=== PATIENT | male | born 1960 | race Caucasian/White ===

== ENCOUNTER 2020-12-02 16:38 | Emergency (ER) | payer OTHER, SELFPAY ==
--- OUTSIDE RECORDS SUMMARY | 2020-12-02 16:43 | XMS REPORT | Continuity of Care Document ---
:1960 Author Organization [facility] Address [address] [place] [address] Care Team Providers Name Role Phone DR MALLORY Attending Clinician Unavailable DR MALLORY Admitting Clinician Unavailable Problems This patient has no known problems. Allergies, Adverse Reactions, Alerts This patient has no known allergies or adverse reactions. Medications This patient has no known medications. Procedures This patient has no known procedures. Encounters Start End Encounter Admission Attending Care Care Encounter Source Date/Time Date/Time Type Type Clinicians Facility Department ID 2020-08-03 2020-08-05 Outpatient E ELVIRA TEJADA TELE [id number] [facility] 12:53:00 17:09:00 [facility] Center 2019-08-22 2019-08-22 Emergency E [facility] [id number] [facility] 01:56:00 01:56:00 Results Test Description Test Time Test Comments Results Result Comments Source BLOOD CULTURE 2020-08-08 13:44:00 Test Item Value Reference Range Interpretation Comme nts Culture Observations (test code = COB1) NO GROWTH AFTER 5 DAYS BLOOD [id number] 13:44:00 Test Item Value Reference Range Interpretation Comments Culture Observations (test NO GROWTH AFTER 5 code = COB1) DAYS GLUCOMETER GLUCOSE- LAB USE [id number] 16:19:00 Test Item Value Reference Range Interpretation Comments GLUCOMETER (test code 228 mg/dL 70-100 H CLEANE D METERMeter ID: = GMG) [id number] tor: [address] GLUCOMETER GLUCOSE- LAB USE [id number] 11:39:00 Test Item Value Reference Range Interpretation Comments GLUCOMETER (test code 188 mg/dL 70-100 H CLEANE D METERMeter ID: = GMG) [id number] tor: [address] GLUCOMETER GLUCOSE- LAB USE [id number] 06:19:00 Test Item Value Reference Range Interpretation Comments GLUCOMETER (test code 110 mg/dL 70-100 H CLEANE D METERMeter ID: = GMG) [id number] tor: [address] LIPID [id number] 05:42:00 Test Item Value Reference Range Interpretation Comments CHOLESTROL (test code 113 mg/dL 140-200 L = 44A) TRIGLYCERI (test code 93 mg/dL See_Comment [Auto mated message] = 42B) The system 9flats generated this result transmitted ref erence range: <=149. T he reference range was not used to int erpret this result as normal/abnormal . HDL (test code = 83D) 50.0 mg/dL 40.0-60.0 LDL (test code = 34B) 61 mg/dL See_Comment [Auto mated message] The system 9flats generated this result transmitted ref erence range: <=99. Th e reference range was not used to int erpret this result as normal/abnormal . CHL/HDL (test code = 2.3 0.0-3.4 CHR) [id number] 05:38:00 Test Item Value Reference Range Interpretation Comments Hb A1C % (test code 6.3 % 3.8-6.4 = HBA) A1C % (test code = HbA1c (% ) A1C) Reference Range Normal <5.7 Prediabetes 5.7-6.4 Diabetic >=6.5 BASIC METABOLIC [id number] 05:31:00 Test Item Value Reference Range Interpretation Comments GLUCOSE (test code 149 mg/dL 75-100 H = 06D) SODIUM (test code 138 mmol/L 136-145 = 01A) POTASSIUM (test 3.6 mmol/L 3.6-5.1 code = 01B) CHLORIDE (test 105 mmol/L 98-107 code = 04A) CO2 (test code = 25 mmol/L 22-32 02A) ANION GAP (test 11.6 mmol/L code = ANG) BUN (test code = 12 mg/dL 7-18 05D) CREATININE (test 0.6 mg/dL 0.7-1.3 L code = 03E) GFR (test code = 109 See_Comment [Automated GFR) mL/min/1.73m\S\2 message] Th e system which generated this result transmit tenisha reference range : >=90. The reference range was not used to interpret this result as normal/abnormal . GFR 127 See_Comment [Automated CAMEROONIAN (test mL/min/1.73m\S\2 message] The code = GFRAA) system which generated this result transmit tenisha reference range : >=90. The reference range was not used to interpret this result as normal/abnormal . EGFR (test code = eGFR BY EGFR) CKD-EPI CALCULATION IS NOT RECOMMENDED FOR PATIENTS UNDER 18 YEARS OF AGE. BUN/CREA (test 05-23 code = BCR) CALCIUM (test code 8.5 mg/dL 8.3-9.5 = 09D) CBC (INCLUDES AUTOMATED DIFFERENTIAL)2020-08-05 05:13:00 Test Item Value Reference Range Interpretation Comments WBC (test code = WBC) 5.9 10\S\3/uL 4.5-11.0 RBC (test code = RBC) 5.02 10\S\6/uL 4.20-5.60 HGB (test code = HBG) 13.6 g/dL 14.0-18.0 L HCT (test code = HCT) 43.9 % 35.0-46.0 MCV (test code = MCV) 87.5 fL 80.0-94.0 MCH (test code = MCH) 27.1 pg 27.0-31.0 MCHC (test code = MCHC) 31.0 g/dL 32.0-36.0 L RDW (test code = RDW) 12.8 % 11.5-14.5 PLT (test code = PLT) 187 10\S\3/uL 130-400 MPV (test code = MPV) 11.1 fL 9.4-12.4 NEUTROP # (test code = NE#) 4.2 10\S\3/uL 2.0-8.0 LYMPH # (test code = LY#) 1.2 10\S\3/uL 1.2-4.0 MONOCYTE # (test code = MO#) 0.4 10\S\3/uL 0.0-1.1 EOSINOPH # (test code = EO#) 0.0 10\S\3/uL 0.0-0.7 BASOPHIL # (test code = BA#) 0.0 10\S\3/uL 0.0-0.3 IG # (test code = IG#) 0.02 10\S\3/uL 0.00-0.06 NRBC # (test code = NRBC#) 0.00 10\S\3/uL 0.00-0.01 NEUTROPH % (test code = NE%) 71.5 % 35.0-73.0 LYMPH % (test code = LY%) 20.3 % 20.0-55.0 MONO % (test code = MO%) 7.4 % 2.5-10.0 EOSINOPH % (test code = EO%) 0.2 % 0.0-5.0 BASOPHIL % (test code = BA%) 0.3 % 0.0-2.0 IG % (test code = IG%) 0.3 % 0.0-0.8 NRBC% (test code = NRBC%) 0.0 % 0.0-0.2 MANDIFF (test code = MDIFF) NO NO RBC MORPH (test code = RBCMOR) NORMAL GLUCOMETER GLUCOSE- LAB USE [id number] 20:27:00 Test Item Value Reference Range Interpretation Comments GLUCOMETER (test code 261 mg/dL 70-100 H CLEANE D METERMeter ID: = GMG) [id number] tor: [address] GLUCOMETER GLUCOSE- LAB USE [id number] 16:04:00 Test Item Value Reference Range Interpretation Comments GLUCOMETER (test code = 264 mg/dL 70-100 H Mete r ID: GMG) [id number] tor: [id number] LENIN BONDS ES GLUCOMETER GLUCOSE- LAB USE [id number] 11:53:00 Test Item Value Reference Range Interpretation Comments GLUCOMETER (test code 190 mg/dL 70-100 H CLEANE D METERMeter ID: = GMG) [id number] tor: [address] [id number] 07:09:00 Test Item Value Reference Range Interpretation Comments FERRITIN (test code = A19) 379.9 ng/mL 26.0-388.0 C-REACTIVE PROTEIN [id number] 07:09:00 Test Item Value Reference Range Interpretation Comments CRP QUANT (test code 11.4 mg/L 0.0-2.9 H = CRPQ) Method Change (test Please note the code = METHOD) change in Method and the reference range BASIC METABOLIC [id number] 06:47:00 Test Item Value Reference Range Interpretation Comments GLUCOSE (test code 229 mg/dL 75-100 H = 06D) SODIUM (test code 135 mmol/L 136-145 L = 01A) POTASSIUM (test 4.3 mmol/L 3.6-5.1 code = 01B) CHLORIDE (test 105 mmol/L 98-107 code = 04A) CO2 (test code = 23 mmol/L 22-32 02A) ANION GAP (test 11.3 mmol/L code = ANG) BUN (test code = 15 mg/dL 7-18 05D) CREATININE (test 0.6 mg/dL 0.7-1.3 L code = 03E) GFR (test code = 108 See_Comment [Automated GFR) mL/min/1.73m\S\2 message] Th e system which generated this result transmit tenisha reference range : >=90. The reference range was not used to interpret this result as normal/abnormal . GFR 126 See_Comment [Automated CAMEROONIAN (test mL/min/1.73m\S\2 message] The code = GFRAA) system which generated this result transmit tenisha reference range : >=90. The reference range was not used to interpret this result as normal/abnormal . EGFR (test code = eGFR BY EGFR) CKD-EPI CALCULATION IS NOT RECOMMENDED FOR PATIENTS UNDER 18 YEARS OF AGE. BUN/CREA (test 24 12-20 H code = BCR) CALCIUM (test code 8.2 mg/dL 8.3-9.5 L = 09D) LIVER [id number] 06:47:00 Test Item Value Reference Range Interpretation Comments BILI TOTAL (test 0.3 mg/dL 0.2-1.0 code = 11A) BILI DIRCT (test <0.1 mg/dL 0.0-0.2 Unable to calculate code = 12A) Indirect Bili d ue to low test result s PROTEIN (test code = 6.8 g/dL 6.4-8.2 07D) ALBUMIN (test code = 3.2 g/dL 3.5-4.8 L 08D) GLOBULIN (test code 3.6 g/dL 1.5-3.8 = GLB) ALB/GLOB (test code 0.9 1.0-2.6 L = AGRR) ALK PHOS (test code 111 IU/L 42-121 = 35A) AST (test code = 26 IU/L See_Comment [Automated message] 30A) The system 9flats generated this result transmitted ref erence range: <=42. Th e reference range was not used to interpr et this result as normal/abnormal . ALT (test code = 43 IU/L See_Comment [Automated message] 31A) The system 9flats generated this result transmitted ref erence range: <=78. Th e reference range was not used to interpr et this result as normal/abnormal . LDH-LACTIC [id number] 06:47:00 Test Item Value Reference Range Interpretation Comments LDH (test code = 33A) 285 IU/L 100-190 H [id number] 06:18:00 Test Item Value Reference Range Interpretation Comments D-DIMER (test code = <200 ng/mL D-DU 0-234 DDI) D-DIMER COMMENT (test *Level to rule out code = DDCOM) DVT or PE: <235 ng/mL D-DU* CBC (INCLUDES AUTOMATED DIFFERENTIAL)2020-08-04 06:15:00 Test Item Value Reference Range Interpretation Comments WBC (test code = WBC) 3.4 10\S\3/uL 4.5-11.0 L RBC (test code = RBC) 4.69 10\S\6/uL 4.20-5.60 HGB (test code = HBG) 13.0 g/dL 14.0-18.0 L HCT (test code = HCT) 40.7 % 35.0-46.0 MCV (test code = MCV) 86.8 fL 80.0-94.0 MCH (test code = MCH) 27.7 pg 27.0-31.0 MCHC (test code = MCHC) 31.9 g/dL 32.0-36.0 L RDW (test code = RDW) 13.0 % 11.5-14.5 PLT (test code = PLT) 170 10\S\3/uL 130-400 MPV (test code = MPV) 11.3 fL 9.4-12.4 NEUTROP # (test code = NE#) 2.0 10\S\3/uL 2.0-8.0 LYMPH # (test code = LY#) 0.9 10\S\3/uL 1.2-4.0 L MONOCYTE # (test code = MO#) 0.4 10\S\3/uL 0.0-1.1 EOSINOPH # (test code = EO#) 0.0 10\S\3/uL 0.0-0.7 BASOPHIL # (test code = BA#) 0.0 10\S\3/uL 0.0-0.3 IG # (test code = IG#) 0.01 10\S\3/uL 0.00-0.06 NRBC # (test code = NRBC#) 0.00 10\S\3/uL 0.00-0.01 NEUTROPH % (test code = NE%) 60.6 % 35.0-73.0 LYMPH % (test code = LY%) 26.9 % 20.0-55.0 MONO % (test code = MO%) 11.9 % 2.5-10.0 H EOSINOPH % (test code = EO%) 0.0 % 0.0-5.0 BASOPHIL % (test code = BA%) 0.3 % 0.0-2.0 IG % (test code = IG%) 0.3 % 0.0-0.8 NRBC% (test code = NRBC%) 0.0 % 0.0-0.2 MANDIFF (test code = MDIFF) NO NO RBC MORPH (test code = RBCMOR) NORMAL FERRITIN 2020-08-03 14:33:00 Test Item Value Reference Range Interpretation Comments FERRITIN (test code = A19) 446.5 ng/mL 26.0-388.0 H C-REACTIVE PROTEIN QUANTITATIVE *WW*2020-08-03 14:31:00 Test Item Value Reference Range Interpretation Comments CRP QUANT (test code 11.8 mg/L 0.0-2.9 H = CRPQ) Method Change (test Please note the code = METHOD) change in Method and the reference range URINALYSIS WITH MICRO *WW*2020-08-03 12:28:00 Test Item Value Reference Range Interpretation Comments COLOR (test code = COLU) YELLOW YELLOW CLARITY (test code = CLA) SLT HAZY CLEAR A GLUCOSE UR (test code = UA GLUCOSE) NEGATIVE NEGATIVE BILI UR (test code = BILE) NEGATIVE NEGATIVE KETONES UR (test code = KARELY) NEGATIVE NEGATIVE SP GRAVITY (test code = SPGR) 1.025 1.005-1.030 PH UR (test code = PH) 6.0 4.5-8.0 PROTEIN UR (test code = PU) TRACE NEGATIVE A UROBIL UR (test code = UROQ) 1.0 EU/dL 0.2-1.0 NITRITE UR (test code = NITRITE) NEGATIVE NEGATIVE BLOOD UR (test code = UA BLOOD) NEGATIVE NEGATIVE LEUK ES UR (test code = LEUK) NEGATIVE NEGATIVE WBC UR (test code = UWBC) 2 /HPF 0-3 RBC UR (test code = URBC) 1 /HPF 0-2 EPITH UR (test code = UEPC) FEW /LPF NONE A BACTERIA UR (test code = UBACT) FEW /HPF NONE A CAST UR (test code = CAST) /LPF NONE CRYSTAL UR (test code = CRYU) / LPF NONE MUCUS UR (test code = MUC) FEW / HPF NONE A AMORPH UR (test code = MICHELLE) / HPF NONE TRICH UR (test code = UTRICH) /HPF NONE YEAST UR (test code = UY) /HPF NONE SPERM UR (test code = USPERM) /HPF NONE Arterial Blood [id number] 11:49:00 Test Item Value Reference Range Interpretation Comments pH (test code = PHRT) 7.462 7.350-7.450 H pCO2 (test code = 33.8 mmHg 35.0-45.0 L PCO2RT) pO2 (test code = 61.5 mmHg 80.0-110.0 L PO2RT) HCO3? (test code = 23.8 mmol/L 22.0-26.0 HCO3) DAVID (test code = DAVID) 1.1 mmol/L -3.0-3.0 tHb (test code = 14.7 g/dL 14.0-18.0 THBRT) sO2 (test code = 91.6 % 92.0-100.0 L SO2RT) FO2Hb (test code = 87.7 % 94.0-100.0 L [id number]) FCOHb (test code = 2.0 % 0.0-3.0 FCOHBRT) FMetHb (test code = 2.2 % 0.2-0.6 H FMETHBRT) ABGTEMP (test code = * Temp Corrected Values* ABGTEMP) ABGTEMP (test code = 37.0 ?C ABGTEMP.) pH (T) (test code = 7.462 7.350-7.450 H PHTEMP) pCO2 (T) (test code = 33.8 mmHg 35.0-45.0 L RVZ2VHHR) pO2 (T) (test code = 61.5 mmHg 80.0-110.0 L [id number]) Device (test code = ROOM AIR DEVICE) FI02 (test code = 21.0 % FI02) Liter_flow (test code = LF) VENPAR (test code = * Ventilator Parameters VENPAR) * SIMV (test code = SIMV) A/C (test code = A/C) CPAP (test code = CPAP) PEEP (test code = PEEP) PS (test code = PS) PIP (test code = PIP) I_Time (test code = ITIME) Vt (test code = VT) BIPAP INSP (test code = BIPAPINP) BIPAP EXP (test code = BIPAPEXP) Thom test (test code Positive = ATEST) SAMPLE SITE (test Right Radial Artery code = SSITE) COMMENT (test code = CO) PRO TIME AND PTT 2020-08-03 11:48:00 Test Item Value Reference Range Interpretation Comments PT (test code = 12.1 s 9.8-13.6 TT) INR (test code = 1.1 INR) INRH (test code = SUGGESTED INRH) THERAPEUTIC RANGE FOR INR: 2.5 - 3.5 For Patients with Prosthetic Valves or Patients with recurrent Thromboembolic Events 2.0 - 3.0 For Most Other Applications PTT (test code = 27.4 s 20.2-38.0 PTT) PTTH (test code = To monitor the PTTH) effectiveness of heparin, we offer the Anti-Xa (Heparin Assay). It can be used for either unfractionated or LMW Heparin. Order Code is ANTI-XA BRAIN NATRIURETIC PEPTIDE *WW*2020-08-03 11:33:00 Test Item Value Reference Range Interpretation Comments proBNP (test code = PBNP) <5 pg/mL 0-125 COMPREHENSIVE METABOLIC CAMACHO *WW*2020-08-03 11:32:00 Test Item Value Reference Range Interpretation Comments GLUCOSE (test code 133 mg/dL 75-100 H = 06D) SODIUM (test code 137 mmol/L 136-145 = 01A) POTASSIUM (test 3.4 mmol/L 3.6-5.1 L code = 01B) CHLORIDE (test 103 mmol/L 98-107 code = 04A) CO2 (test code = 25 mmol/L 22-32 02A) ANION GAP (test 12.4 mmol/L code = ANG) BUN (test code = 13 mg/dL 7-18 05D) CREATININE (test 0.7 mg/dL 0.7-1.3 code = 03E) GFR (test code = 106 See_Comment [Automated GFR) mL/min/1.73m\S\2 message] Th e system which generated this result transmit tenisha reference range : >=90. The reference range was not used to interpret this result as normal/abnormal . GFR 123 See_Comment [Automated CAMEROONIAN (test mL/min/1.73m\S\2 message] The code = GFRAA) system which generated this result transmit tenisha reference range : >=90. The reference range was not used to interpret this result as normal/abnormal . EGFR (test code = eGFR BY EGFR) CKD-EPI CALCULATION IS NOT RECOMMENDED FOR PATIENTS UNDER 18 YEARS OF AGE. BUN/CREA (test 05-23 code = BCR) CALCIUM (test code 8.4 mg/dL 8.3-9.5 = 09D) BILI TOTAL (test 0.3 mg/dL 0.2-1.0 code = 11A) PROTEIN (test code 7.7 g/dL 6.4-8.2 = 07D) ALBUMIN (test code 3.6 g/dL 3.5-4.8 = 08D) GLOBULIN (test 4.1 g/dL 1.5-3.8 H code = GLB) ALB/GLOB (test 0.9 1.0-2.6 L code = AGRR) ALK PHOS (test 114 IU/L 42-121 code = 35A) AST (test code = 26 IU/L See_Comment [Automated 30A) message] The system which generated this result transmit tenisha reference range : <=42. The reference range was not used to interpret this result as normal/abnormal . ALT (test code = 48 IU/L See_Comment [Automated 31A) message] The system which generated this result transmit tenisha reference range : <=78. The reference range was not used to interpret this result as normal/abnormal . LDH-LACTIC DEHYDROGENASE WW2020-08-03 11:32:00 Test Item Value Reference Range Interpretation Comments LDH (test code = 33A) 185 IU/L 100-190 CPK *WW*2020-08-03 11:32:00 Test Item Value Reference Range Interpretation Comments CPK (test code = 32A) 74 IU/L 39-308 LACTIC ACID WW2020-08-03 11:30:00 Test Item Value Reference Range Interpretation Comments LACTIC ACD (test code = LA) 1.0 mmol/L 0.4-2.0 D-DIMER *WW*2020-08-03 11:30:00 Test Item Value Reference Range Interpretation Comments D-DIMER (test code = 230 ng/mL D-DU 0-234 DDI) D-DIMER COMMENT (test *Level to rule out code = DDCOM) DVT or PE: <235 ng/mL D-DU* TROPONIN I *WW*2020-08-03 11:30:00 Test Item Value Reference Range Interpretation Comments TROPONIN I (test code = A84) <0.015 ng/mL 0.000-0.045 SARS-CoV (RAPID ANTIGEN) WW2020-08-03 11:29:00 Test Item Value Reference Range Interpretation Comments SARS-CoV (ANTIGEN) POSITIVE NEGATIVE AA (test code = COVAG) COVID AG (test This test has been code = COVAGC) marketed under the FDA Emergency Use Authorization (EUA) to meet challenges of the COVID-19 pandemic. The validation standards normally enforced by the FDA and the [employer] [place] [employer] (CAP) are more stringent than those required for this test. Therefore, the result should be interpreted with caution and close attention to other clinical and epidemiological data DIRECT INFLUENZA A AND B [id number] 11:24:00 Test Item Value Reference Range Interpretation Comments Direct Exam (test PRESUMPTIVE NEGATIVE FOR code = DE3) THE PRESENCE OF INFLUENZA ANTIGEN CBC (INCLUDES AUTOMATED DIFFERENTIAL)*[id number] 11:17:00 Test Item Value Reference Range Interpretation Comments WBC (test code = WBC) 4.4 10\S\3/uL 4.5-11.0 L RBC (test code = RBC) 5.10 10\S\6/uL 4.20-5.60 HGB (test code = HBG) 14.4 g/dL 14.0-18.0 HCT (test code = HCT) 43.1 % 35.0-46.0 MCV (test code = MCV) 84.5 fL 80.0-94.0 MCH (test code = MCH) 28.2 pg 27.0-31.0 MCHC (test code = MCHC) 33.4 g/dL 32.0-36.0 RDW (test code = RDW) 13.1 % 11.5-14.5 PLT (test code = PLT) 161 10\S\3/uL 130-400 MPV (test code = MPV) 10.6 fL 9.4-12.4 NEUTROP # (test code = NE#) 3.0 10\S\3/uL 2.0-8.0 LYMPH # (test code = LY#) 1.0 10\S\3/uL 1.2-4.0 L MONOCYTE # (test code = MO#) 0.4 10\S\3/uL 0.0-1.1 EOSINOPH # (test code = EO#) 0.0 10\S\3/uL 0.0-0.7 BASOPHIL # (test code = BA#) 0.0 10\S\3/uL 0.0-0.3 IG # (test code = IG#) 0.01 10\S\3/uL 0.00-0.06 NRBC # (test code = NRBC#) 0.00 10\S\3/uL 0.00-0.01 NEUTROPH % (test code = NE%) 67.6 % 35.0-73.0 LYMPH % (test code = LY%) 22.6 % 20.0-55.0 MONO % (test code = MO%) 8.6 % 2.5-10.0 EOSINOPH % (test code = EO%) 0.5 % 0.0-5.0 BASOPHIL % (test code = BA%) 0.5 % 0.0-2.0 IG % (test code = IG%) 0.2 % 0.0-0.8 NRBC% (test code = NRBC%) 0.0 % 0.0-0.2 MANDIFF (test code = WMDIFF) NO NO RBC MORPH (test code = NORMAL WRBCMOR)
[2020-12-02] MEDS ORDERED: FENTANYL CITR 100 MCG/2 ML ONE ×2 (17:07→18:24)
[2020-12-02 17:39] LABS: Absolute Lymphocytes (CBC) 1.4 K/uL (0.7-4.9); Basophils % 0.4 % (0-1.3); Hematocrit 41.5 % (39.6-49.0); Lymphocytes % 8.9 % (15.3-44.8); MPV 9.2 fL (7.6-11.3); RBC Red Blood Cell Count 4.97 M/uL (4.33-5.43)
[2020-12-02] MEDS ORDERED: ONDANSETRON 4 MG/2 ML VIAL ONE (17:41)
--- NOTE | 2020-12-02 17:51 | RAD REPORT ---
EXAM DESCRIPTION: RAD - Tib Fib Left - 12/02/2020 5:20 pm CLINICAL HISTORY: Blunt force trauma left leg COMPARISON: None. FINDINGS: Bite malleolar fracture pattern is present. Transverse fracture of medial malleolus presen t and there is transverse fracture of the distal fibula 1.5 cm superior to the tibial plafond. There are several small fracture fragments along the fracture plane. No posterior malleolus fracture is see n. Medial malleolus fracture fragment remains approximated to the dome of the talus which has been di slocated laterally 1.5 cm. No talus or calcaneus fracture identified. Soft tissue swelling is present . No foreign body. IMPRESSION: Left ankle bimalleolar fracture with lateral subluxation of the talus 1.5 cm.
--- NOTE | 2020-12-02 17:54 | RAD REPORT ---
EXAM DESCRIPTION: RAD - Foot Left 2 View - 12/02/2020 5:22 pm CLINICAL HISTORY: PAIN, blunt force trauma to the foot and ankle COMPARISON: No comparisons FINDINGS: No fracture, dislocation or periosteal reaction in the foot. Punctate curvilinear density along the lateral margin of the medial cuneiform bone near the first metatarsal is potentially a smal l avulsion. Medial malleolus and distal fibula fractures are separately detailed. No foreign body. No acute or destructive bony process. Soft tissue swelling present at the ankle joint. IMPRESSION: No gross evidence for a foot fracture. Ankle fracture is separately detailed. A punctate crescent shaped bone density along the lateral margin of the medial cuneiform is potential ly a small avulsion. If this is a true acute bone process, it would probably not alter medical manage ment given the ankle finding.
[2020-12-02 17:57] LABS: BUN Blood Urea Nitrogen 21 mg/dL (7-18); Bicarbonate 23 mmol/L (21-32); Glucose Level 147 mg/dL (74-106); Potassium 4.3 mmol/L (3.5-5.1); Sodium Level 142 mmol/L (136-145)
[2020-12-02 18:07] LABS: White Blood Cell Scan OK (OK)
[2020-12-02 18:08] LABS: Blood Morphology Comment NOT SEEN (NOT SEEN); Platelet Estimate ADEQ
--- NOTE | 2020-12-02 18:51 | EDPHYS ---
Physician Documentation [facility] Name: James Rodriguez Age: 60 yrs Sex: Male : 1960 Arrival Date: 12/02/2020 Time: 16:40 Bed 2 Private MD: ED Physician Arsen Nava HPI: 12/02 18:28 This 60 yrs old Male presents to ER via EMS with complaints of Leg Injury. jr8 18:28 Onset: The symptoms/episode began/occurred acutely, today. Modifying factors: The jr8 symptoms are alleviated by nothing. the symptoms are aggravated by movement. Associated signs and symptoms: The patient has no apparent associated signs or symptoms. Treatment prior to arrival includes: splinting the affected extremity, pain meds. Severity of symptoms: At their worst the symptoms were severe, in the emergency department the symptoms are unchanged. The patient has not experienced similar symptoms in the past. The patient has not recently seen a physician. Patient was undoing 5000 pound cylinders. One rolled over left ankle causing immediate pain and deformity. EMS brought patient in. Given ketamine prior to arrival. Denies any other injury . Historical: - Allergies: 16:45 No Known Allergies; iw - Home Meds: 16:45 None [Active]; iw - PMHx: 16:45 None; iw - PSHx: 16:45 None; iw - Immunization history:: Adult Immunizations unknown. - Immunization history: Last tetanus immunization: unknown. - Social history:: Smoking status: unknown. ROS: 18:28 Eyes: Negative for injury, pain, redness, and discharge, ENT: Negative for injury, jr8 pain, and discharge, Neck: Negative for injury, pain, and swelling, Cardiovascular: Negative for chest pain, palpitations, and edema, Respiratory: Negative for shortness of breath, cough, wheezing, and pleuritic chest pain, Abdomen/GI: Negative for abdominal pain, nausea, vomiting, diarrhea, and constipation, Back: Negative for injury and pain, Skin: Negative for injury, rash, and discoloration, Neuro: Negative for headache, weakness, numbness, tingling, and seizure. 18:28 MS/extremity: Positive for decreased range of motion, deformity, ecchymosis, pain, swelling, tenderness, of the left ankle. Exam: 18:28 Head/Face: Normocephalic, atraumatic. Eyes: Pupils equal round and reactive to light, jr8 extra-ocular motions intact. Lids and lashes normal. Conjunctiva and sclera are non-icteric and not injected. Cornea within normal limits. Periorbital areas with no swelling, redness, or edema. ENT: Nares patent. No nasal discharge, no septal abnormalities noted. Tympanic membranes are normal and external auditory canals are clear. Oropharynx with no redness, swelling, or masses, exudates, or evidence of obstruction, uvula midline. Mucous membranes moist. Neck: Trachea midline, no thyromegaly or masses palpated, and no cervical lymphadenopathy. Supple, full range of motion without nuchal rigidity, or vertebral point tenderness. No Meningismus. Chest/axilla: Normal chest wall appearance and motion. Nontender with no deformity. No lesions are appreciated. Cardiovascular: Regular rate and rhythm with a normal S1 and S2. No gallops, murmurs, or rubs. Normal PMI, no JVD. No pulse deficits. Respiratory: Lungs have equal breath sounds bilaterally, clear to auscultation and percussion. No rales, rhonchi or wheezes noted. No increased work of breathing, no retractions or nasal flaring. Abdomen/GI: Soft, non-tender, with normal bowel sounds. No distension or tympany. No guarding or rebound. No evidence of tenderness throughout. Back: No spinal tenderness. No costovertebral tenderness. Full range of motion. Skin: Warm, dry with normal turgor. Normal color with no rashes, no lesions, and no evidence of cellulitis. Neuro: Awake and alert, GCS 15, oriented to person, place, time, and situation. Cranial nerves II-XII grossly intact. Motor strength 5/5 in all extremities. Sensory grossly intact. 18:28 Constitutional: The patient appears alert, awake, in obvious pain. 18:28 Musculoskeletal/extremity: Extremities: grossly normal except: noted in the left ankle: Patient has bruising, abrasion, and moderate swelling noted to left foot and ankle. Obvious deformity present. Decreased ROM present secondary to pain and swelling. Pulses present to foot and ankle via Doppler. , Tingling of extremity. Compartment Syndrome exam of affected extremity: no numbness, no sensation deficit, no palor, no weak pulses, severe pain, with passive ROM, tingling. Vital Signs: 16:45 BP 112 / 92; Pulse 86; Resp 16; Temp 98.5; Pulse Ox 96% on R/A; iw 17:11 BP 133 / 56; Pulse 116; Resp 17; Pulse Ox 95% on R/A; tw2 17:44 BP 117 / 72; Pulse 86; Resp 17; Pulse Ox 95% on R/A; tw2 18:35 BP 120 / 66; Pulse 98; Resp 17; Pulse Ox 97% on R/A; tw2 19:17 BP 102 / 70; Pulse 80; Resp 18; Pulse Ox 98% ; ea 19:48 BP 118 / 93; Pulse 98; Resp 17; Pulse Ox 94% ; Pain 7/10; bs2 [place] Coma Score: 16:45 Eye Response: spontaneous(4). Verbal Response: oriented(5). Motor Response: obeys iw commands(6). Total: 15. 19:17 Eye Response: spontaneous(4). Verbal Response: oriented(5). Motor Response: obeys ea commands(6). Total: 15. Trauma Score (Adult): 16:45 Eye Response: spontaneous(1); Verbal Response: oriented(1); Motor Response: obeys iw commands(2); Systolic BP: > 89 mm Hg(4); Respiratory Rate: 10 to 29 per min(4); [place] Score: 15; Trauma Score: 12 MDM: 16:42 Patient medically screened. [facility] 18:49 Data reviewed: vital signs, nurses notes, lab test result(s), radiologic studies, plain jr8 films. Data interpreted: Pulse oximetry: on room air is 97 %. Interpretation: normal. Counseling: I had a detailed discussion with the patient and/or guardian regarding: the historical points, exam findings, and any diagnostic results supporting the discharge/admit diagnosis, radiology results, the need to transfer to another facility, [facility] does not immediately have the required specialist. ED course: [facility] accepted patient for further evaluation . 12/02 16:45 Order name: Basic Metabolic Panel; Complete Time: 18:27 jr8 12/02 16:45 Order name: CBC with Diff; Complete Time: 18:27 jr8 12/02 16:45 Order name: XRAY Tib Fib LEFT; Complete Time: 18:27 jr8 12/02 18:08 Order name: CBC Smear Scan; Complete Time: 18:27 EDMS 12/02 16:45 Order name: Labs collected and sent; Complete Time: 17:28 jr8 12/02 17:21 Order name: Foot Left 2 View; Complete Time: 18:27 EDNV 12/02 17:43 Order name: Posterior Leg Splint; Complete Time: 18:14 jr8 Administered Medications: 16:53 Drug: fentaNYL (PF) 100 mcg Route: IVP; Site: left antecubital; tr6 17:29 Follow up: Response: No adverse reaction; Pain is decreased; RASS: Alert and Calm (0) tw2 17:28 Drug: Zofran (Ondansetron) 4 mg Route: IVP; Site: left antecubital; tw2 17:37 Follow up: Response: No adverse reaction tw2 18:10 Drug: fentaNYL (PF) 75 mcg {Note: RASS 0.} Route: IVP; Site: left antecubital; tw2 18:35 Follow up: Response: No adverse reaction; Pain is decreased; RASS: Alert and Calm (0) tw2 19:01 Drug: Dilaudid (HYDROmorphone) 2 mg Route: IVP; Site: left antecubital; tw2 20:15 Follow up: Response: No adverse reaction; Pain is unchanged, physician notified bs2 20:15 Drug: Dilaudid (HYDROmorphone) 1 mg Route: IVP; Site: left antecubital; bs2 Disposition: 12/03 07:34 Co-signature as Attending Physician, Arsen Nava MD I agree with the assessment and aarti plan of care. Disposition Summary: 12/02/20 18:51 Transfer Ordered Transfer Location: [facility] jr8 Reason: Higher level of care jr8 Condition: Fair jr8 Problem: new jr8 Symptoms: are unchanged jr8 Accepting Physician: Dr. Tineo(12/02/20 20:17) radha Diagnosis - Displaced bimalleolar fracture of left lower leg, initial encounter for closed jr8 fracture - Crushing injury of foot jr8 Forms: - Medication Reconciliation Form jr8 - SBAR form jr8 Signatures: Dispatcher [employer] Arsen Polanco MD MD cha Williams, Irene, RN RN iw Roszak, Josh, PA PA jr8 Martha Arriaga RN RN tw2 Maria Guadalupe Kidd, RN RN ea Susan Simms, RN RN tr6 Chiara Morris bs2 Corrections: (The following items were deleted from the chart) 12/02 17:20 16:46 Ankle Left 3 View+RAD.RAD.BRZ ordered. EDMS EDMS 17:21 16:46 Foot Left 3 View+RAD.RAD.BRZ ordered. EDMS EDMS 20:17 18:51 Dr. Tineo jr8 ea
--- NOTE | 2020-12-02 18:51 | ER ---
Nurse's Notes [facility] Name: James Rodriguez Age: 60 yrs Sex: Male : 1960 Arrival Date: 12/02/2020 Time: 16:40 Bed 2 Private MD: Diagnosis: Displaced bimalleolar fracture of left lower leg, initial encounter for closed fracture;Crushing injury of foot Presentation: 12/02 16:41 Chief complaint: EMS states: pt was unloading 5000 pound steel cylinders, one rolled iw onto left ankle/whipple. Care prior to arrival: Medication(s) given: Ketamine 20 mg IVP IV initiated. 18 GA, in the left antecubital area. Mechanism of Injury: Crush injury from industrial equipment, that weighed approximately 5000 pounds. Trauma event details: Injury occurred in the [facility], Injury occurred: in an industrial place of business Injury occurred: December 02, 2020. 16:41 Acuity: MARK 2 iw 16:41 Method Of Arrival: EMS: [facility] iw 16:46 Coronavirus screen: At this time, the client does not indicate any symptoms associated iw with coronavirus-19. Ebola Screen: Patient negative for fever greater than or equal to 101.5 degrees Fahrenheit, and additional compatible Ebola Virus Disease symptoms Patient denies exposure to infectious person. Patient denies travel to an Ebola-affected area in the 21 days before illness onset. No symptoms or risks identified at this time. Initial Sepsis Screen: Does the patient meet any 2 criteria? No. Patient's initial sepsis screen is negative. Does the patient have a suspected source of infection? No. Patient's initial sepsis screen is negative. Risk Assessment: Do you want to hurt yourself or someone else? Patient reports no desire to harm self or others. Onset of symptoms was December 02, 2020. Triage Assessment: 17:36 Injury Description: Crush injury. tw2 Trauma Activation: Alert Physician: ED Physician; Name: Dr. Nava; Notified At: 16:43; Arrived At: 16:43 Physician: General Surgeon; Name: N/A; Notified At: 16:43; Arrived At: N/A Physician: Radiology; Name: Denice; Notified At: 16:43; Arrived At: 16:43 Physician: Respiratory; Name: N/A; Notified At: 16:43; Arrived At: N/A Physician: Lab; Name: N/A; Notified At: 16:43; Arrived At: N/A Historical: - Allergies: 16:45 No Known Allergies; iw - Home Meds: 16:45 None [Active]; iw - PMHx: 16:45 None; iw - PSHx: 16:45 None; iw - Immunization history:: Adult Immunizations unknown. - Immunization history: Last tetanus immunization: unknown. - Social history:: Smoking status: unknown. Screenin:45 Abuse screen: Denies threats or abuse. Denies injuries from another. Tuberculosis iw screening: No symptoms or risk factors identified. 17:35 Nutritional screening: No deficits noted. Fall Risk Secondary diagnosis (15 points) tw2 impaired mobility. Primary Survey: 16:44 NO uncontrolled hemorrhage observed. A: The patient is alert. Airway: patent. iw Breathing/Chest: Respiratory pattern: regular, Respiratory effort: spontaneous. Circulation: Heart tones present. Skin color: pink. Disability Alert. Exposure/Environment: All clothing and personal items were removed. Forensic evidence collection is not deemed to be indicated at this time. Items placed in patient belonging bag. There is no evidence of uncontrolled external bleeding. Obvious injury(ies) are noted at this time: left leg. 17:35 Reassessment Airway Airway Patent Breathing/Chest Respiratory pattern Regular tw2 Respiratory effort Spontaneous Unlabored Breath sounds Clear Chest inspection Symmetrical Circulation Heart tones Present Disability Alert. Secondary Survey: 17:34 HEENT: No deficits noted. Gastrointestinal: Abdomen is flat. : No signs and/or tw2 symptoms were reported regarding the genitourinary system. Musculoskeletal: Range of motion: limited in left knee and left ankle Swelling present in left foot and left leg. Injury Description: Crush injury sustained to left leg and left foot. Assessment: 16:42 Reassessment: provider PARVEEN Durham at bedside at this time. General: Appears tw2 uncomfortable, Behavior is anxious, fussy, restless. Pain: Complains of pain in left foot and left leg. Neuro: Level of Consciousness is awake, alert, obeys commands, Oriented to person, place, time, situation. EENT: No signs and/or symptoms were reported regarding the EENT system. Cardiovascular: Patient's skin is warm and dry. Respiratory: Airway is patent Respiratory effort is even, unlabored, Respiratory pattern is regular, symmetrical. GI: No signs and/or symptoms were reported involving the gastrointestinal system. : No signs and/or symptoms were reported regarding the genitourinary system. Derm: Bruising that is bright red, dark purple, on left foot and left leg with swelling noted to LEFT lower extremity. Musculoskeletal: Swelling present in left foot and left leg. 18:29 Reassessment: initiated transfer with [facility]. iw 18:36 Reassessment: Patient appears in no apparent distress at this time. No changes from tw2 previously documented assessment. Patient and/or family updated on plan of care and expected duration. Pain level reassessed. Patient is alert, oriented x 3, equal unlabored respirations, skin warm/dry/pink. 19:16 Reassessment: Report given to Ryanne BLACK at [facility]. Awaiting on ambulance for ea arrival. Vital Signs: 16:45 BP 112 / 92; Pulse 86; Resp 16; Temp 98.5; Pulse Ox 96% on R/A; iw 17:11 BP 133 / 56; Pulse 116; Resp 17; Pulse Ox 95% on R/A; tw2 17:44 BP 117 / 72; Pulse 86; Resp 17; Pulse Ox 95% on R/A; tw2 18:35 BP 120 / 66; Pulse 98; Resp 17; Pulse Ox 97% on R/A; tw2 19:17 BP 102 / 70; Pulse 80; Resp 18; Pulse Ox 98% ; ea 19:48 BP 118 / 93; Pulse 98; Resp 17; Pulse Ox 94% ; Pain 7/10; bs2 [place] Coma Score: 16:45 Eye Response: spontaneous(4). Verbal Response: oriented(5). Motor Response: obeys iw commands(6). Total: 15. 19:17 Eye Response: spontaneous(4). Verbal Response: oriented(5). Motor Response: obeys ea commands(6). Total: 15. Trauma Score (Adult): 16:45 Eye Response: spontaneous(1); Verbal Response: oriented(1); Motor Response: obeys iw commands(2); Systolic BP: > 89 mm Hg(4); Respiratory Rate: 10 to 29 per min(4); [place] Score: 15; Trauma Score: 12 ED Course: 16:40 Patient arrived in ED. iw 16:40 Patient maintains SpO2 saturation greater than 95% on room air. Thermoregulation: warm tw2 blanket given to patient. 16:40 Bed in low position. Call light in reach. athletic monitor on. Pulse ox on. NIBP on. tw2 16:42 Arsen Nava MD is Attending Physician. aarti 16:44 Triage completed. iw 16:45 Saurabh Spear PA is PHCP. jr8 16:46 Maintain EMS IV. Dressing intact. Good blood return noted. Site clean \T\ dry. Gauge \T\ iw site: 18 LAC. 16:47 Arm band placed on. iw 17:15 Martha Arriaga RN is Primary Nurse. tw2 17:20 XRAY Tib Fib LEFT In Process Unspecified. EDMS 17:21 Foot Left 2 View In Process Unspecified. EDMS 19:15 Report given to SOFIA Barrera and SOFIA Guadarrama. tw2 19:16 No provider procedures requiring assistance completed. Patient transferred, IV remains ea in place. Administered Medications: 16:53 Drug: fentaNYL (PF) 100 mcg Route: IVP; Site: left antecubital; tr6 17:29 Follow up: Response: No adverse reaction; Pain is decreased; RASS: Alert and Calm (0) tw2 17:28 Drug: Zofran (Ondansetron) 4 mg Route: IVP; Site: left antecubital; tw2 17:37 Follow up: Response: No adverse reaction tw2 18:10 Drug: fentaNYL (PF) 75 mcg {Note: RASS 0.} Route: IVP; Site: left antecubital; tw2 18:35 Follow up: Response: No adverse reaction; Pain is decreased; RASS: Alert and Calm (0) tw2 19:01 Drug: Dilaudid (HYDROmorphone) 2 mg Route: IVP; Site: left antecubital; tw2 20:15 Follow up: Response: No adverse reaction; Pain is unchanged, physician notified bs2 20:15 Drug: Dilaudid (HYDROmorphone) 1 mg Route: IVP; Site: left antecubital; bs2 Intake: 17:36 PO: 0ml; Total: 0ml. tw2 Outcome: 18:51 ER care complete, transfer ordered by MD. sousa 19:17 Instructed on the need for transfer, Demonstrated understanding of instructions. ea 19:50 Patient's length of stay in the Emergency Department was greater than 2 hours. bs2 20:17 Patient left the ED. ea Signatures: Dispatcher [employer] EDMS Arsen Nava MD MD cha Williams, Irene RN RN Saurabh Madera PA PA jr8 Wise, Tara, RN RN tw2 Maria Guadalupe Kidd RN RN ea Ramnanan, Tiffany, RN RN tr6 Chiara Morris bs2 Corrections: (The following items were deleted from the chart) 17:21 17:20 In radiology for Foot Left 3 View+RAD.RAD.BRZ. EDMA EDMS 18:36 18:35 BP 120 / 120; Pulse 98bpm; Resp 17bpm; Pulse Ox 97% RA; tw2 tw2
[2020-12-02] MEDS ORDERED: HYDROMORPHONE HCL 1 MG/ML INJ ONE (19:21)
[2020-12-02] MEDS ORDERED: HYDROMORPHONE HCL 2 MG/ML inj ONE (20:28)
[2020-12-02 20:35] VITALS: TEMP 98.5
[2020-12-02 20:42] VITALS: BP 118/93; O2SAT 94
== END 2020-12-02 20:17 | disposition short-term general hospital (02) ==
LOC: ER 16:38
PROC: 2W3RX1Z Immobilization of Left Lower Leg using Splint (ICD-10-PCS; principal; 2020-12-02)
DX: S82.842A Displaced bimalleolar fracture of left lower leg, initial encounter for closed fracture (principal); W23.1XXA Caught, crushed, jammed, or pinched between stationary objects, initial encounter; Y93.89 Activity, other specified; Y92.89 Other specified places as the place of occurrence of the external cause; Y99.8 Other external cause status
CPT/HCPCS: 85025; 80048; 36415; 73620; 73590; 96375; 96374; 99285; 29515; J1170 ×2; J3010 ×2; J2405; G0390